=== PATIENT | female | born 1945 | race Two or more races ===

== ENCOUNTER → 2017-05-13 | Day surgery (SDC) | payer OTHER ==
[~2017-05-13] MED LIST: BUMETANIDE1 MG PO; COZAAR100 MG PO; FORTAMET500 MG PO; FOSAMAX70 MG PO; GLUCOTROL XL5 MG PO; LABETALOL HCL200 MG PO; PROVASTATIN PO; ZANTAC300 MG PO; [UNRECOGNIZED DRUG - OTHER] PO
== END | disposition home or self-care (01) ==
LOC: ADM 05-10 08:30 → CIR.AMB 04:00
DX: D24.2 Benign neoplasm of left breast (principal); D24.1 Benign neoplasm of right breast; N60.42 Mammary duct ectasia of left breast; N60.41 Mammary duct ectasia of right breast; R92.0 Mammographic microcalcification found on diagnostic imaging of breast; E11.9 Type 2 diabetes mellitus without complications; I10 Essential (primary) hypertension; E78.00 Pure hypercholesterolemia, unspecified

== ENCOUNTER 2025-02-01 12:55 | Emergency (ER) | payer OTHER ==
[~2025-02-01] VITALS: Ht 170.2 cm; Wt 87.1 kg
[2025-02-01] MEDS ORDERED: PREGABALIN150 MG (13:58)
[2025-02-01] MEDS ORDERED: AMITIZA24 MCG (13:58)
[2025-02-01] MEDS ORDERED: ORPHENADRINE CITRATE 30 MG/ML AMPUL IM ONE (14:15)
[2025-02-01] MEDS ORDERED: ORPHENADRINE CITRATE 30 MG/ML AMPUL ONE (15:38)
[2025-02-01 16:04] LABS: BASO % 0.2 % (0.1-1.2); EOS # 0.05 (0.04-0.54); EOS % 0.8 % (0.7-7.0); LYMPH # 2.23 (1.18-3.74); LYMPH % 34.6 % (19.3-53.1); MEAN PLATELET VOLUME 9.70 fl (9.4-12.4); MONO # 0.45 (0.24-0.82); MONO % 7.0 % (4.7-12.5); NEUT # 3.69 (1.56-6.13); NEUT % 57.2 % (34.0-71.1); RED CELL DISTRIBUTION WIDTH 13.2 % (11.6-14.4)
== END 2025-02-01 22:27 | disposition home or self-care (01) ==
LOC: ER 12:56
PROVIDERS: General Practice
DX: M54.89 Other dorsalgia (principal); E11.9 Type 2 diabetes mellitus without complications; Z79.84 Long term (current) use of oral hypoglycemic drugs; I10 Essential (primary) hypertension